=== PATIENT | female | born 1985 | race Caucasian/White ===

== ENCOUNTER → 2017-04-04 | Outpatient (CLI) | payer SELFPAY ==
[~2017-04-04] MED LIST: ADIPEX-P37.5 MG PO; AMOXICILLIN 50500 MG PO; BIRTH CONTROL; BIRTH CONTROL PILL; CELEXA10 MG PO; KETOROLAC10 MG PO; PRILOSEC 20MG20 MG PO
== END ==
LOC: COL.LAB 13:55
DX: Z01.89 Encounter for other specified special examinations (principal)

== ENCOUNTER → 2017-04-06 | Outpatient (CLI) | payer SELFPAY ==
[2017-04-08 13:50] LABS: HERPES SIMPLEX VIRUS 1 IGG Positive (Negative); HERPES SIMPLEX VIRUS 2 IGG Negative (Negative)
== END ==
LOC: COL.LAB 18:27
DX: B19.20 Unspecified viral hepatitis C without hepatic coma (principal); B00.9 Herpesviral infection, unspecified

== ENCOUNTER 2018-04-07 21:14 | Emergency (ER) | payer SELFPAY ==
[~2018-04-07] VITALS: Ht 165.1 cm; Wt 84.5 kg
[2018-04-07 21:17] VITALS: TEMP 98.9
[2018-04-07 21:36] LABS: BASO % 0.3 % (0.0-2.0); EOS # 0.2 (0.0-0.7); EOS % 1.3 % (0-4.0); GRAN # 7.2 (1.4-6.5); GRAN % 64.6 % (42.2-75.2); HEMATOCRIT 37.1 % (37.0-47.0); HEMOGLOBIN 12.5 g/dl (12.5-16.0); LYMPH # 2.7 (1.2-3.4); LYMPH % 24.5 % (20.0-51.0); MEAN CELL VOLUME 92 fl (80.0-100.0); MEAN CORPUSCULAR HEMOGLOBIN 31 pg (27.0-31.0); MEAN CORPUSCULAR HGB CONC 34 g/dl (33.0-37.0); PLATELET COUNT 412 K/mm3 (130-400); RED BLOOD COUNT 4.04 M/mm3 (4.10-5.30)
[2018-04-07 21:47] LABS: ALANINE AMINOTRANSFERASE 28 U/L (9-52); ALBUMIN 3.9 gm/dL (3.5-5.0); ALKALINE PHOSPHATASE 74 U/L (50-136); ANION GAP 12 mmol/L (7-16); AST,SGOT 17 U/L (15-37); BILIRUBIN,TOTAL 0.3 mg/dL (0.0-1.0); BLOOD UREA NITROGEN 14 mg/dL (7-17); CALCIUM 8.8 mg/dL (8.4-10.2); CARBON DIOXIDE 21 mmol/L (22-30); CHLORIDE 108 mmol/L (98-107); CREATININE, serum 0.53 mg/dL (0.52-1.25); GLUCOSE 104 mg/dL (74-106); POTASSIUM 3.7 mmol/L (3.4-5.0); SODIUM 142 mmol/L (137-145); TOTAL PROTEIN 7.1 gm/dL (6.4-8.2)
[2018-04-07 22:00] LABS: TROPONIN-I < 0.012 ng/mL (0.000-0.034)
[2018-04-07 22:17] LABS: COLLECTION METHOD CLEAN CATCH
[2018-04-07 22:17] LABS: THYROID STIMULATING HORMONE 0.931 uIU/mL (0.465-4.680)
[2018-04-07 22:26] LABS: MUCOUS Present /lpf; PH 6 (5-8); SQUAMOUS EPITHELIAL 0-2 /hpf; URINE APPEARANCE Clear; URINE BACTERIA None Seen /hpf; URINE BILIRUBIN Negative (NEGATIVE); URINE BLOOD 2+ (NEGATIVE); URINE COLOR Yellow; URINE GLUCOSE Negative (NEGATIVE); URINE KETONE Negative (NEGATIVE); URINE LEUKOCYTE ESTERASE Negative (NEGATIVE); URINE NITRATE Negative (NEGATIVE); URINE PROTEIN(semi-quant) Negative (NEGATIVE)
[2018-04-07 22:30] LABS: TRICYCLIC ANTIDEPRESS URINE NEGATIVE
[2018-04-07] MEDS ORDERED: TRANDATE 100MG100 MG PO (23:20)
[2018-04-08] VITALS: BP 164/91; PULSE 85
== END 2018-04-08 | disposition home or self-care (01) ==
LOC: COL.ER 21:14
PROVIDERS: Emergency Medicine
DX: I10 Essential (primary) hypertension (principal); R00.2 Palpitations; F17.210 Nicotine dependence, cigarettes, uncomplicated

== ENCOUNTER 2018-04-16 17:45 | Emergency (ER) | payer SELFPAY ==
[~2018-04-16] VITALS: Ht 165.1 cm; Wt 86.8 kg
[~2018-04-16 17:45] MED LIST changes: +TRANDATE 100MG100 MG PO
[2018-04-16 17:52] VITALS: TEMP 99.1
[2018-04-16 19:02] LABS: BASO % 0.2 % (0.0-2.0); EOS # 0.1 (0.0-0.7); EOS % 0.7 % (0-4.0); GRAN # 7.1 (1.4-6.5); GRAN % 66.9 % (42.2-75.2); LYMPH # 2.6 (1.2-3.4); LYMPH % 24.6 % (20.0-51.0); MEAN CELL VOLUME 94 fl (80.0-100.0); MEAN CORPUSCULAR HEMOGLOBIN 31 pg (27.0-31.0); MEAN CORPUSCULAR HGB CONC 33 g/dl (33.0-37.0); MEAN PLATELET VOLUME 9.9 fl (7.4-10.4); MONO # 0.8 (0.1-0.6); MONO % 7.3 % (1.7-9.3); PLATELET COUNT 426 K/mm3 (130-400); RED BLOOD COUNT 3.84 M/mm3 (4.10-5.30); REDCELL DISTRIBUTION WIDTH-CV 12.8 % (11.5-14.5)
[2018-04-16 19:03] LABS: HEMATOCRIT 35.9 % (37.0-47.0)
[2018-04-16 19:08] LABS: INR 0.9 (0.8-3.0); PROTHROMBIN TIME 10.3 SECONDS (9.7-12.8)
[2018-04-16 19:14] LABS: ALANINE AMINOTRANSFERASE 23 U/L (9-52); ALBUMIN 3.6 gm/dL (3.5-5.0); ALKALINE PHOSPHATASE 64 U/L (50-136); ANION GAP 8 mmol/L (7-16); AST,SGOT 14 U/L (15-37); BILIRUBIN,TOTAL 0.2 mg/dL (0.0-1.0); BLOOD UREA NITROGEN 12 mg/dL (7-17); C-REACTIVE PROTEIN 1.2 mg/dL (0.0-0.9); CALCIUM 8.5 mg/dL (8.4-10.2); CARBON DIOXIDE 25 mmol/L (22-30); CHLORIDE 106 mmol/L (98-107); CREATININE, serum 0.59 mg/dL (0.52-1.25); GLUCOSE 81 mg/dL (74-106); POTASSIUM 3.8 mmol/L (3.4-5.0); SODIUM 139 mmol/L (137-145); TOTAL PROTEIN 6.7 gm/dL (6.4-8.2)
[2018-04-16 19:23] LABS: TROPONIN-I < 0.012 ng/mL (0.000-0.034)
[2018-04-16 19:32] LABS: D-DIMER < 200.00 ng/mLDDu (200-230)
[2018-04-16] MEDS ORDERED: ZITHROMAX500 M2 PO (20:23)
[2018-04-16 21:33] VITALS: BP 185/91; PULSE 82
[2018-04-16] MEDS ORDERED: DIFLUCAN150 MG PO (21:37)
== END 2018-04-16 21:36 | disposition home or self-care (01) ==
LOC: COL.ER 17:45
PROVIDERS: Emergency Medicine
DX: J20.9 Acute bronchitis, unspecified (principal); I10 Essential (primary) hypertension; F17.210 Nicotine dependence, cigarettes, uncomplicated; Z90.49 Acquired absence of other specified parts of digestive tract
CPT/HCPCS: J1885; J2930; J3010; J7030

== ENCOUNTER 2018-04-19 10:25 | Emergency (ER) | payer SELFPAY ==
[~2018-04-19] VITALS: Ht 165.1 cm; Wt 86.4 kg
[~2018-04-19 10:25] MED LIST changes: +DIFLUCAN150 MG PO; +ZITHROMAX500 M2 PO
[2018-04-19 10:34] VITALS: TEMP 98.3
[2018-04-19] MEDS ORDERED: PREDNISONE20 MG PO (12:07)
[2018-04-19 12:25] VITALS: BP 163/94; PULSE 80
== END 2018-04-19 12:29 | disposition home or self-care (01) ==
LOC: COL.ER 10:25
DX: J40 Bronchitis, not specified as acute or chronic (principal); I10 Essential (primary) hypertension; F17.210 Nicotine dependence, cigarettes, uncomplicated; Z90.49 Acquired absence of other specified parts of digestive tract; Z98.890 Other specified postprocedural states

== ENCOUNTER 2019-03-19 21:15 | Emergency (ER) | payer SELFPAY ==
[~2019-03-19] VITALS: Ht 162.6 cm; Wt 92.7 kg
[~2019-03-19 21:15] MED LIST changes: +PREDNISONE20 MG PO
[2019-03-19 21:26] VITALS: BP 154/92; TEMP 98.4
[2019-03-19] MEDS ORDERED: CEPHALEXIN500 M1 PO (23:07)
[2019-03-19 23:40] VITALS: PULSE 87
== END 2019-03-19 23:40 | disposition home or self-care (01) ==
LOC: COL.ER 21:15
DX: S81.011A Laceration without foreign body, right knee, initial encounter (principal); F32.9 Major depressive disorder, single episode, unspecified; I10 Essential (primary) hypertension; Z23 Encounter for immunization; Z79.52 Long term (current) use of systemic steroids; W30.89XA Contact with other specified agricultural machinery, initial encounter; Y92.007 Garden or yard of unspecified non-institutional (private) residence as the place of occurrence of the external cause

== ENCOUNTER 2019-03-22 13:51 | Emergency (ER) | payer SELFPAY ==
[~2019-03-22] VITALS: Ht 162.6 cm; Wt 92.7 kg
[~2019-03-22 13:51] MED LIST changes: +CEPHALEXIN500 M1 PO
[2019-03-22 14:16] VITALS: BP 135/59; PULSE 105; TEMP 98.2
== END 2019-03-22 16:03 | disposition left against medical advice (07) ==
LOC: COL.ER 13:51
DX: Z48.00 Encounter for change or removal of nonsurgical wound dressing (principal)

== ENCOUNTER 2022-04-06 17:54 | Emergency (ER) | payer SELFPAY ==
[~2022-04-06] VITALS: Ht 162.6 cm; Wt 95.5 kg
[~2022-04-06 17:54] MED LIST changes: +BACTRIM DS 8001 TAB PO; +CLEOCIN HCL300 MG PO; +DIFLUCAN 100MG100 MG PO; +NORCO 325 MG-51 TAB PO
[2022-04-06 17:57] VITALS: TEMP 99.2
[2022-04-06] MEDS ORDERED: AMOXICILLIN 8751 TAB PO (20:34)
[2022-04-06] MEDS ORDERED: NAPROSYN500 MG PO (20:34)
[2022-04-06] MEDS ORDERED: MORPHINE 1515 MG/TAB PO (20:34)
[2022-04-06] MEDS ORDERED: DIFLUCAN150 MG PO (20:55)
[2022-04-06 21:13] VITALS: BP 148/96; PULSE 97
== END 2022-04-06 21:08 | disposition home or self-care (01) ==
LOC: COL.ER 17:54
DX: S62.634B Displaced fracture of distal phalanx of right ring finger, initial encounter for open fracture (principal); S91.312A Laceration without foreign body, left foot, initial encounter; S30.1XXA Contusion of abdominal wall, initial encounter; S00.31XA Abrasion of nose, initial encounter; Z23 Encounter for immunization; W54.0XXA Bitten by dog, initial encounter

== ENCOUNTER 2024-01-10 15:32 | Observation (INO) | payer SELFPAY ==
[~2024-01-10] VITALS: Ht 162.6 cm; Wt 102.7 kg
[~2024-01-10 15:32] MED LIST changes: +AMOXICILLIN 8751 TAB PO; +MORPHINE 1515 MG/TAB PO; +NAPROSYN500 MG PO
[2024-01-10] MEDS ORDERED: HYDROmorphone 0.5 MG/0.5 ML SYRINGE IV ONE (18:15)
[2024-01-10] MEDS ORDERED: Ondansetron 4 MG/2 ML VIAL IV ONE (18:15)
[2024-01-10 18:36] LABS: BASO % 0.3 % (0.0-2.0); EOS # 0.2 K/mm3 (0.0-0.7); EOS % 1.4 % (0.0-4.0); GRAN # 7.1 K/mm3 (1.4-6.5); GRAN % 63.6 % (42.2-75.2); HEMATOCRIT 45.5 % (37.0-47.0); HEMOGLOBIN 15.2 g/dl (12.5-16.0); LYMPH # 2.9 K/mm3 (1.2-3.4); LYMPH % 26.3 % (20.0-51.0); MEAN CELL VOLUME 91 fl (80.0-100.0); MEAN CORPUSCULAR HEMOGLOBIN 30 pg (27-31); MEAN CORPUSCULAR HGB CONC 33 g/dl (33.0-37.0); MEAN PLATELET VOLUME 9.9 fl (7.4-10.4); MONO # 0.9 K/mm3 (0.1-0.6); MONO % 8.1 % (1.7-9.3); PLATELET COUNT 424 K/mm3 (130-400); REDCELL DISTRIBUTION WIDTH-CV 12.2 % (11.5-14.5)
[2024-01-10] MEDS ORDERED: NS 1,000 ML IV SCH (18:45)
[2024-01-10 18:53] LABS: ALBUMIN 3.4 g/dL (3.5-5.0); BILIRUBIN,TOTAL 0.3 mg/dL (0.2-1.2); C-REACTIVE PROTEIN 1.13 mg/dL (0.00-0.50); CREATININE, serum 0.68 mg/dL (0.57-1.11); POTASSIUM 3.8 mEq/L (3.5-4.5)
[2024-01-10] MEDS ORDERED: hydrALAZINE 20 MG/ML 1 ML VIAL IV PRN (19:00)
[2024-01-10] MEDS ORDERED: Morphine 4 MG/ML VIAL IV PRN (19:00)
[2024-01-10] MEDS ORDERED: amLODIPine 5 MG TAB PO SCH (19:15)
[2024-01-10] MEDS ORDERED: cefTRIAXone 2 G in Water For Injection,Sterile 20 ML IV SCH (19:15)
--- NOTE | 2024-01-10 19:35 | NUR ---
Report recieved from LORNA Holman. All questions answered.
--- NOTE | 2024-01-10 19:50 | NUR ---
Patient arrived to room 317 with personal belongings. Rates her pain about 1/10 at this time. Assessment and med rec complete. IV in left AC flushes easily without complications. Oriented patient to room, bathroom, and call light. Call light and personal items in reach. Bed in low position.
[2024-01-10 20:00] VITALS: BP 156/84; PULSE 85
[2024-01-10] MEDS ORDERED: Nicotine 21 MG DAILY PATCH TD SCH (20:30)
[2024-01-10 21:00] VITALS: BP_SYST 156
[2024-01-10 23:43] VITALS: BP 174/92; PULSE 89; TEMP 98.1
[2024-01-11] VITALS (15 sets, daily range): BP systolic 142–178; BP diastolic 80–109; PULSE 79–102; TEMP 97.5–99.1
[2024-01-11 06:48] LABS: BASO % 0.2 % (0.0-2.0); EOS # 0.2 K/mm3 (0.0-0.7); EOS % 2.1 % (0.0-4.0); GRAN # 5.1 K/mm3 (1.4-6.5); GRAN % 62.2 % (42.2-75.2); HEMATOCRIT 44.8 % (37.0-47.0); HEMOGLOBIN 14.8 g/dl (12.5-16.0); LYMPH # 2.2 K/mm3 (1.2-3.4); MEAN CELL VOLUME 93 fl (80.0-100.0); MEAN CORPUSCULAR HEMOGLOBIN 31 pg (27-31); MEAN CORPUSCULAR HGB CONC 33 g/dl (33.0-37.0); MONO # 0.7 K/mm3 (0.1-0.6); MONO % 8.3 % (1.7-9.3); PLATELET COUNT 392 K/mm3 (130-400); RED BLOOD COUNT 4.82 M/mm3 (4.10-5.30); REDCELL DISTRIBUTION WIDTH-CV 12.3 % (11.5-14.5)
[2024-01-11 07:05] LABS: ALBUMIN 3.2 g/dL (3.5-5.0); BILIRUBIN,TOTAL 0.7 mg/dL (0.2-1.2); CALCIUM 8.7 mg/dL (8.4-10.2); CREATININE, serum 0.57 mg/dL (0.57-1.11); POTASSIUM 3.8 mEq/L (3.5-4.5); TOTAL PROTEIN 6.2 g/dl (6.2-8.1)
--- NOTE | 2024-01-11 07:10 | NUR ---
TELEPHONE ORDER RECEIVED FROM DR PEARSON FOR ROUTINE ERCP. THIS NURSE REPEATED ORDER AND VERBALIZED UNDERSTANDING.
--- NOTE | 2024-01-11 07:50 | NUR ---
DOLL WIG MAKER ROOTED HAIR NOTIFIED OF ERCP ORDER. LAB CALLED AND NOTIFIED OF [facility] AND STATES THAT THEY CAN RUN IT OFF OF MORNING LABS.
--- NOTE | 2024-01-11 08:30 | NUR ---
PT LAYING IN BED UPON ENTERING. ASSSESSMENT DONE, MEDS GIVEN PER ORDER. PT REPORTS A MILD HEADACHE, THIS NURSE NOTIFIED PT THAT BLOOD PRESSURE IS HIGH AND THAT WE WILL RECHECK BP FOR IMPROVEMENT. PT VERBALIZED UNDERSTANDING AND OFFERED WARM HEAD COMPRESS WHICH SHE REFUSED. NORMAL SALINE RUNNING AT 100MLS/HR IN LEFT AC PER ORDER. NICOTINE PATCH REMOVED FROM RIGHT UPPER BACK AND NEW ONE PLACED TO LEFT UPPER BACK. PT UPDATED ON NPO ORDER AND PLAN FOR ERCP TODAY. PT EDUCATED ON PROCEDURE AND GIVEN HANDOUT FOR ERCP AND CONSENT SIGNED. PT DENIES QUESTIONS AND THIS NURSE ENCOURAGED PT TO ASK ANY NEW QUESTIONS TO ENDO STAFF BEFORE PROCEDURE. PT DENIES NEEDS. BED IN LOWEST POSITION, CALL LIGHT IN REACH.
[2024-01-11] MEDS ORDERED: Nicotine 21 MG DAILY PATCH TD SCH (09:00)
[2024-01-11] MEDS ORDERED: Pantoprazole 40 MG in NS 10 ML IV SCH (09:00)
--- NOTE | 2024-01-11 10:00 | NUR ---
PT REPORTS 8/10 HEADACHE AND GIVEN PRN MORPHINE WITH WARM HEAD COMPRESS. PT DENIES NEEDS AT THIS TIME
--- NOTE | 2024-01-11 11:00 | NUR ---
PT CALLED AND REPORTS HEADACHE 04/02, BP 164/89. UNABLE TO GET PRN MORPHINE AT THIS TIME WITH NO OTHER PRNS. HOSPTIALIST NOTIFIED, NO NEW ORDERS AT THIS TIME
--- NOTE | 2024-01-11 12:04 | NUR ---
ENDO NURSE CALLED AND NOTIFIED THIS NURSE THAT PT IS NAUSEOUS, THIS NURSE HEARD DRY HEAVING OVER THE PHONE. PRN COMPAZINE GIVEN AND PT ESCORTED TO ENDO FOR ERCP. PT DENIES OTHER NEEDS AT THIS TIME.
[2024-01-11] MEDS ORDERED: LR 1,000 ML IV SCH (12:15)
[2024-01-11] MEDS ORDERED: Lidocaine PF 2% (20 MG/ML) 5 ML VIAL ONE (12:17)
[2024-01-11] MEDS ORDERED: Iohexol 350 - 100 ML VIAL BILE DUCT ONE (12:43)
--- NOTE | 2024-01-11 13:05 | NUR ---
PT BACK FROM ENDO. PT DENIES PAIN. POST OP VITALS STARTED. PT REPORTS BEING VERY TIRED, THIS NURSE EDUCATED PT ON SEDATION MEDS AND PT VERBALIZED UNDERSTANDING. BED IN LOWEST POSITION, CALL LIGHT IN REACH
[2024-01-11] MEDS ORDERED: Ibuprofen 600 MG TAB PO PRN (13:45)
[2024-01-11] MEDS ORDERED: Acetamin/Butalbital/Caffeine 325-50-40 MG TAB PO PRN (13:45)
--- NOTE | 2024-01-11 16:31 | NUR ---
Custom Seamstress met with patient to discuss discharge planning. Patient lives alone in [place] and sees Dr. Ashraf for primary care. Patient gets medications from [facility] and advised she currently does not have insurance coverage. Patient is employed at [employer] as well as [employer]. Patient does not use any DME and is independent with [employer]. Patient does not have DPOA-HC and is not interested in completing one at this time. Patient is not and has no children. Parents, Dena and [place] are legal next of kin. Discharge Plan: Home
[2024-01-11] MEDS ORDERED: ZESTRIL 5MG5 MG PO (16:41)
[2024-01-11] MEDS ORDERED: NORCO 325 MG-51 TAB PO (16:41)
[2024-01-11] MEDS ORDERED: ZOFRAN 4MG T4 MG/TAB PO (16:41)
--- NOTE | 2024-01-11 17:15 | NUR ---
IV REMOVED AND PT DRESSED IN PERSONAL CLOTHES. DISCHARGE INSTRUCTIONS GIVEN TO PT AND MOM, BOT VERBALIZED UNDERSTANDING. PT DENIES NEEDS AND ESCORTED TO PERSONAL VEHICLE VIA WHEELCHAIR BY PCT
[2024-01-12] MEDS ORDERED: Lisinopril 5 MG TAB PO SCH (09:00)
== END 2024-01-11 17:33 | disposition home or self-care (01) ==
LOC: COL.ER 15:32 → MEDICAL 18:51
PROVIDERS: Internal Medicine Gastroenterology; Nurse Practitioner; Nurse Practitioner Family; ADMIT Internal Medicine
DX: K83.8 Other specified diseases of biliary tract (principal); K80.50 Calculus of bile duct without cholangitis or cholecystitis without obstruction; I10 Essential (primary) hypertension; F17.210 Nicotine dependence, cigarettes, uncomplicated; Z90.49 Acquired absence of other specified parts of digestive tract; Z79.899 Other long term (current) drug therapy
CPT/HCPCS: C1769; C9113; G0378; J0360; J0696; J0780; J1170; J2270; J2405; J2704; J7030; Q9967

== ENCOUNTER 2024-04-04 17:00 | Emergency (ER) | payer OTHER ==
[~2024-04-04] VITALS: Ht 157.5 cm; Wt 102.3 kg
[~2024-04-04 17:00] MED LIST changes: +ZESTRIL 5MG5 MG PO; +ZOFRAN 4MG T4 MG/TAB PO
[2024-04-04 17:32] VITALS: TEMP 98.6
[2024-04-04] MEDS ORDERED: NS 1,000 ML IV ONE (17:45)
[2024-04-04 17:49] LABS: BASO % 0.2 % (0.0-2.0); EOS # 0.1 K/mm3 (0.0-0.7); EOS % 0.7 % (0.0-4.0); GRAN # 15.2 K/mm3 (1.4-6.5); GRAN % 79.4 % (42.2-75.2); HEMATOCRIT 41.9 % (37.0-47.0); HEMOGLOBIN 14.4 g/dl (12.5-16.0); LYMPH # 2.3 K/mm3 (1.2-3.4); LYMPH % 11.9 % (20.0-51.0); MEAN CELL VOLUME 91 fl (80.0-100.0); MEAN CORPUSCULAR HEMOGLOBIN 31 pg (27-31); MEAN CORPUSCULAR HGB CONC 34 g/dl (33.0-37.0); MEAN PLATELET VOLUME 9.7 fl (7.4-10.4); MONO # 1.4 K/mm3 (0.1-0.6); MONO % 7.4 % (1.7-9.3); PLATELET COUNT 421 K/mm3 (130-400); RED BLOOD COUNT 4.63 M/mm3 (4.10-5.30); REDCELL DISTRIBUTION WIDTH-CV 12.3 % (11.5-14.5)
[2024-04-04 18:08] LABS: COLLECTION METHOD CLEAN CATCH
[2024-04-04 18:14] LABS: ALBUMIN 3.7 g/dL (3.5-5.0); BILIRUBIN,TOTAL 0.6 mg/dL (0.2-1.2); C-REACTIVE PROTEIN 8.48 mg/dL (0.00-0.50); CREATININE, serum 0.66 mg/dL (0.57-1.11); POTASSIUM 3.8 mEq/L (3.5-4.5); TOTAL PROTEIN 6.9 g/dl (6.2-8.1)
[2024-04-04 18:18] LABS: URINE APPEARANCE CLOUDY (CLEAR/HAZY); URINE BLOOD TRACE (NEGATIVE); URINE COLOR Dark Yellow (YELLOW); URINE GLUCOSE NEGATIVE (NEGATIVE); URINE KETONE TRACE (NEGATIVE); URINE NITRATE NEGATIVE (NEGATIVE); URINE PROTEIN(semi-quant) TRACE (NEGATIVE)
[2024-04-04] MEDS ORDERED: Ketorolac 15 MG/ML VIAL IV ONE (18:30)
[2024-04-04] MEDS ORDERED: Morphine 4 MG/ML VIAL IV ONE (19:45)
[2024-04-04] MEDS ORDERED: Iohexol 300 - 100 ML VIAL IV ONE (20:15)
[2024-04-04] MEDS ORDERED: NS 50 ML IV SCH (20:15)
[2024-04-04] MEDS ORDERED: AMOXICILLIN 8751 TAB PO (21:13)
[2024-04-04] MEDS ORDERED: Home HYDROcodone/Acetaminophen 5/325 MG #4 TABS/PACK PO ONE (21:15)
[2024-04-04] MEDS ORDERED: Amoxicillin/Clavulanate K+ 875/125 MG TAB PO ONE (21:15)
[2024-04-04 21:26] VITALS: BP 171/88; PULSE 100
== END 2024-04-04 21:32 | disposition home or self-care (01) ==
LOC: COL.ER 17:00
PROVIDERS: Nurse Practitioner
DX: K57.32 Diverticulitis of large intestine without perforation or abscess without bleeding (principal); F17.210 Nicotine dependence, cigarettes, uncomplicated
CPT/HCPCS: J1885; J2270; J7030; Q9967